=== PATIENT | male | born 1950 | race Caucasian/White ===

== ENCOUNTER 2020-11-25 17:24 | Outpatient (RCR) | payer MEDICARE, OTHER, SELFPAY ==
[2020-11-25] MEDS: COVID-19 VACC, MRNA(PFIZER)/PF 30 MCG/0.3 ML SYRINGE IM (14:11)
[2020-12-16] MEDS: COVID-19 VACC, MRNA(PFIZER)/PF 30 MCG/0.3 ML SYRINGE IM (13:36)
== END 2021-03-01 23:59 ==
LOC: IMMUN 17:24
PROVIDERS: PCP Family Medicine; Referring Provider Family Medicine; Visit Provider Family Medicine
DX: Z23 Encounter for immunization (principal)
CPT/HCPCS: 0001A; 0002A; 91300

== ENCOUNTER 2022-06-19 07:14 | Day surgery (SDC) | payer MEDICARE, OTHER, SELFPAY ==
[2022-06-19 07:35] VITALS: BP 153/87; PULSE 65; RESP 16; TEMP 36.8; O2SAT 100; BMI 33.7
[2022-06-19] MEDS: Lactated Ringers 1,000 ML 15 ML IV (07:46)
--- NOTE | 2022-06-19 07:56 | PCM.HP.STD ---
HPI - General General Date of Admission: 06/19/22 Date of Service: 06/19/22 Chief Complaint: Screening colonoscopy HPI Narrative ALEXSANDER MEJIAS, is a 71 M who presents for a screening colonoscopy. He has a past medical history of hypertension and hypercholesterolemia. Both he was controlled on medicines. He denies any chest pain or shortness of breath. He denies any nausea. He is not having heart attacks or stroke. He is not have any abdominal pain. He denies any bleeding per rectum. His weight has been stable. All other 16 review of systems are negative except as pertinent positive mentioned HPI. [facility] Medical History (Updated 06/14/22 @ 08:50 by Mary Aviles) History of atrial fibrillation History of echocardiogram History of stress test Hypertension Non-smoker Pure hypercholesterolemia, unspecified Wears glasses Home Medications amlodipine 5 mg-benazepril 10 mg capsule 1 cap PO DAILY BP 03/03/22 [History Last Taken 06/19/22] atorvastatin 10 mg tablet 10 mg PO QHS 03/03/22 [History Last Taken Unknown] hydrochlorothiazide 25 mg tablet 25 mg PO DAILY 03/03/22 [History Last Taken Unknown] Allergy/AdvReac Type Severity Reaction Status Date / Time No Known Allergies Allergy Verified 06/19/22 07:34 Family History (Updated 03/03/22 @ 16:39 by Zaria Cortez) Aunt Colon cancer Mother Brain cancer Heart disease Myocardial infarction Hx of CABG Father Hypertension Surgical History (Updated 03/03/22 @ 16:38 by Zaria Cortez) History of cataract surgery History of colonoscopy with polypectomy History of rhinoplasty History of total right hip arthroplasty Social History (Updated 03/03/22 @ 16:40 by Zaria Cortez) Smoking Status: Never smoker Electronic Cigarette Use: not used substance use type: does not use ROS Review of Systems ROS Unobtainable: other Constitutional Constitutional: Denies fatigue, fever(s), poor appetite, weight gain or weight loss ENT HEENT: Denies mouth lesions Cardiovascular Cardiovascular: Denies abdominal bloating, abdominal edema or abdominal pain Respiratory/Chest Respiratory/Chest: Denies change in mental status, change in phlegm color, chest congestion or chest tightness Gastrointestinal Gastrointestinal: Denies belching, bloating, change in bowel habits, change in stool character, chewing difficulty, coffee ground emesis, constipation, cramping, diarrhea, dyspepsia, dysphagia, early satiety, excessive flatus, fecal incontinence, heartburn, hematemesis, hematochezia, hemorrhoids, loose stools, melena, nausea, odynophagia, rectal bleeding, tenesmus, vomiting or weight changes Genitourinary Genitourinary: Denies abdominal discomfort, burning urination or itching Musculoskeletal Musculoskeletal: Reports as per HPI; Denies muscle weakness or myalgias Integumentary Integumentary: Denies jaundice Neurologic Neurologic: Denies lack of coordination or weakness Psychiatric Psychiatric: Denies confusion, depression, memory loss, mood swings, paranoia or suicidal ideation Endocrine Endocrinology: Denies systems reviewed and no addt'l complaints, except as documented Hematologic/Lymphatic Hematologic/Lymphatic: Denies anemia, easy bleeding, easy bruising or lymphadenopathy Allergic/Immunologic Allergic/Immunologic: Denies systems reviewed and no addt'l complaints, except as documented Vital Signs Vital Signs Vital Signs: 06/19/22 07:35 06/19/22 07:35 Temperature 98.2 F Temperature Source Temporal Pulse Rate 65 Respiratory Rate 16 Respiratory Pattern Normal Blood Pressure 153/87 H Blood Pressure Mean 109 Blood Pressure Source Monitor Blood Pressure Position Semi-Fowlers Blood Pressure Location Left Arm Pulse Ox 100 Oxygen Delivery Method Room Air Weight Weight: 249 lb 1.957 oz Body Mass Index (BMI) 33.7 Physical Exam Const alert General Appearance: cooperative Orientation / Consciousness: oriented to person HEENT hearing grossly normal bilaterally Head and Scalp: normal to inspection Face and Sinus: face symmetric Nose: external nose normal Mouth: oral and palatal mucosa normal Eyes conjunctivae normal General Eye: normal appearance of both eyes Neck full ROM General: normal visual inspection Lymph Lymphatic: no lymphadenopathy noted Chest inspection of chest normal and palpation of chest normal Chest: symmetrical chest wall rise Resp normal respiratory effort Effort and Inspection: able to speak in complete sentences Cardio regular rate GI non-distended Percussion: normal to percussion Rectal Exam: deferred Neuro Speech: speech normal Gait (Neuro): normal gait Assessment & Plan Assessment/Plan (1) Encounter for screening for malignant neoplasm of colon: PLAN: He was explained alternatives, risk, benefits including not withstanding bleeding, infection, sepsis, perforation, need for emergent surgery . He will have an ASA of 1.
--- NOTE | 2022-06-19 09:21 | OP.CCLET_ITS ---
06/19/2022 Surya Thorne Re : Colonoscopy procedure for Raman Alvarado Dear Mati This procedure was performed on Sunday, June 19, 2022. My impressions and recommendations are as follows: Impressions : - Diverticulosis in the sigmoid colon. - Stool in the rectum. - The examination was otherwise normal on direct and retroflexion views. - No specimens collected. Recommendations : - Discharge patient to home. - Resume previous diet. - Continue present medications. - Repeat colonoscopy in 5 years for surveillance. My findings are described in the full procedure note, which is enclosed. If I can be of further assistance, please feel free to contact me at . Sincerely, Daniel Tay, 06/19/2022 9:21:12 AM This report has been signed electronically.
--- NOTE | 2022-06-19 09:21 | OP.COLON_ITS ---
Patient Name: Raman Alvarado Procedure Date: 06/19/2022 8:52 AM Date of : 1950 Age: 71 Procedure: Colonoscopy Indications: Screening for colorectal malignant neoplasm Providers: Daniel Tay DO Medicines: Monitored Anesthesia Care Patient Profile: This is a 71 year old male. Refer to note in patient chart for documentation of history and physical. Last Colonoscopy: 10 years ago. Complications: No immediate complications. Procedure: Pre-Anesthesia Assessment: - Prior to the procedure, a History and Physical was performed, and patient medications and allergies were reviewed. The patient is competent. The risks and benefits of the procedure and the sedation options and risks were discussed with the patient. All questions were answered and informed consent was obtained. Patient identification and proposed procedure were verified by the physician in the pre-procedure area. Mental Status Examination: alert and oriented. Airway Examination: normal oropharyngeal airway and neck mobility. Respiratory Examination: clear to auscultation. CV Examination: normal. Prophylactic Antibiotics: The patient does not require prophylactic antibiotics. Prior Anticoagulants: The patient has taken no previous anticoagulant or antiplatelet agents. After reviewing the risks and benefits, the patient was deemed in satisfactory condition to undergo the procedure. The anesthesia plan was to use monitored anesthesia care (MAC). Immediately prior to administration of medications, the patient was re-assessed for adequacy to receive sedatives. The heart rate, respiratory rate, oxygen saturations, blood pressure, adequacy of pulmonary ventilation, and response to care were monitored throughout the procedure. The physical status of the patient was re-assessed after the procedure. After I obtained informed consent, the scope was passed under direct vision. Throughout the procedure, the patient's blood pressure, pulse, and oxygen saturations were monitored continuously. The Colonoscope was introduced through the anus and advanced to the cecum, identified by appendiceal orifice and ileocecal valve. The colonoscopy was performed without difficulty. The patient tolerated the procedure well. The quality of the bowel preparation was good. Scope In: 9:02:57 AM Scope Withdrawal Time 0 hours 10 minutes 43 seconds Scope Out: 9:17:02 AM Total Procedure Duration Time 0 hours 14 minutes 5 seconds Findings: The perianal and digital rectal examinations were normal. A few small-mouthed diverticula were found in the sigmoid colon. A moderate amount of stool was found in the rectum, precluding visualization. The exam was otherwise without abnormality on direct and retroflexion views. Impression: - Diverticulosis in the sigmoid colon. - Stool in the rectum. - The examination was otherwise normal on direct and retroflexion views. - No specimens collected. Recommendation: - Discharge patient to home. - Resume previous diet. - Continue present medications. - Repeat colonoscopy in 5 years for surveillance. Procedure Code(s): --- Professional --- G0121, Colorectal cancer screening; colonoscopy on individual not meeting criteria for high risk CPT copyright 2017 [employer]. All rights reserved. The codes documented in this report are preliminary and upon medical insurance coder review may be revised to meet current compliance requirements. Daniel Tay DO 06/19/2022 9:21:12 AM This report has been signed electronically. Number of Addenda: 0 Note Initiated On: 06/19/2022 8:52 AM
[2022-06-19 09:25] VITALS: BP 153/87; BP 98/74; PULSE 69; RESP 16; TEMP 36.2; O2SAT 99
[2022-06-19 09:30] VITALS: BP 112/68; BP 153/87; PULSE 69; RESP 16; O2SAT 98
[2022-06-19 09:35] VITALS: BP 116/73; BP 153/87; PULSE 67; RESP 16; O2SAT 98
[2022-06-19 09:40] VITALS: BP 116/82; BP 153/87; PULSE 58; RESP 16; TEMP 36.2; O2SAT 99
[2022-06-19 09:53] VITALS: BP 153/87
== END 2022-06-19 10:02 | disposition home or self-care (01) ==
LOC: EN 07:16 → AC 07:17
PROVIDERS: PCP Family Medicine; Referring Provider Family Medicine; Visit Provider Internal Medicine Gastroenterology
PROC: 0DJD8ZZ Inspection of Lower Intestinal Tract, Via Natural or Artificial Opening Endoscopic (ICD-10-PCS; CPT 45378; principal; 2022-06-19 08:10)
DX: Z12.11 Encounter for screening for malignant neoplasm of colon (principal); K57.30 Diverticulosis of large intestine without perforation or abscess without bleeding; Z80.0 Family history of malignant neoplasm of digestive organs; I10 Essential (primary) hypertension; E78.00 Pure hypercholesterolemia, unspecified
CPT/HCPCS: G0121; J7120